=== PATIENT | female | born 1995 | race Caucasian/White ===

== ENCOUNTER → 2019-05-07 09:11 | Outpatient (CLI) | payer MEDICAID, SELFPAY ==
[2019-05-07 08:09] VITALS: BMI 27.1
[2019-05-07 10:03] LABS: Absolute Lymphocyte Count 1.21 X10^3/uL (0.83-4.51); Absolute Neutrophil Count 4.4 X10^3/uL (2.0-7.7); Eosinophil# 0.02 X10^3/uL; Eosinophils% 0.3 % (0-5); Hematocrit 40.1 % (37-47); Hemoglobin 13.7 g/dL (12.0-15.0); Lymphocyte # 1.21 X10^3/ul (4.0); Mean Corp Hgb Conc 34.2 g/dL (32-36); Mean Corpuscular Volume 81.8 fL (81-99); Mean Platelet Vol. 11.6 fl (6.2-12.0); Monocyte# 0.43 X10^3/uL; Monocyte% 7.1 % (0-10); NRBC Flagged by Analyzer 0 % (0-5); Neutrophil # 4.36 X10^3/uL (2.7-7.7); Neutrophil % 72.3 % (47-70); Platelet Count 150 K/mm3 (150-450); RBC Distribution Width CV 13.4 % (11.6-14.6); RBC Distribution Width SD 39.8 fl (35.1-43.9)
[2019-05-07 11:19] LABS: HIV - WCH Non-Reactive (Nonreactive); Rubella IgG 195.3 IU/mL
[2019-05-07 12:22] LABS: Hepatitis B Surface Antigen Non-Reactive (Nonreactive)
[2019-05-07 14:46] LABS: Chlamydia Trachomatis by PCR Negative (Negative); Neisserai gonorrhoeae by PCR Negative (Negative); Probe Check PASS; Sample Adequacy Control PASS; Specimen Processing Control PASS
[2019-05-10 09:27] LABS: HPV Reflexed? NOT INDICATED
[2019-05-11 01:33] LABS: Rapid Plasmin Reagin (RPR) NONREACTIVE (NONREACTIVE)
== END ==
PROVIDERS: Referring Provider Obstetrics & Gynecology; Visit Provider Obstetrics & Gynecology
DX: Z34.90 Encounter for supervision of normal pregnancy, unspecified, unspecified trimester (principal); Z12.4 Encounter for screening for malignant neoplasm of cervix
CPT/HCPCS: 36415; 85025; 86592; 86703; 86762; 86850; 86900; 87077; 87086; 87088; 87186; 87340; 87491; 87591; 87624; 88175; G0145

== ENCOUNTER → 2019-09-11 12:08 | Outpatient (CLI) | payer MEDICAID, SELFPAY ==
[2019-09-10 15:17] VITALS: BMI 27.4
[2019-09-11 13:21] LABS: Absolute Neutrophil Count 6.9 X10^3/uL (2.0-7.7); Basophil# 0.01 X10^3/uL; Basophil% 0.1 % (0-1); Eosinophil# 0.05 X10^3/uL; Eosinophils% 0.6 % (0-5); Hematocrit 36.7 % (37-47); Hemoglobin 12.2 g/dL (12.0-15.0); Lymphocyte % 13.5 % (19-41); Mean Corp Hgb Conc 33.2 g/dL (32-36); Mean Corpuscular Volume 87.2 fL (81-99); Mean Platelet Vol. 10.8 fl (6.2-12.0); Monocyte# 0.64 X10^3/uL; Monocyte% 7.2 % (0-10); NRBC Flagged by Analyzer 0 % (0-5); Neutrophil # 6.93 X10^3/uL (2.7-7.7); Neutrophil % 78.1 % (47-70); Platelet Count 177 K/mm3 (150-450); RBC Distribution Width CV 13.3 % (11.6-14.6); RBC Distribution Width SD 41.7 fl (35.1-43.9); Red Blood Count 4.21 M/mm3 (4.2-5.4); White Blood Count 8.9 K/mm3 (4.4-11.0)
[2019-09-11 13:59] LABS: Glucose Challenge Gest 1H 50g 78 mg/dL (70-140)
== END ==
PROVIDERS: Referring Provider Obstetrics & Gynecology; Visit Provider Obstetrics & Gynecology
DX: O36.0120 Maternal care for anti-D [Rh] antibodies, second trimester, not applicable or unspecified (principal); Z3A.00 Weeks of gestation of pregnancy not specified
CPT/HCPCS: 36415; 82950; 85025; 86850; 86900; 86901

== ENCOUNTER → 2019-11-07 16:55 | Outpatient (CLI) | payer MEDICAID, SELFPAY ==
[2019-11-07 11:32] VITALS: BMI 27.4
== END ==
PROVIDERS: Referring Provider Obstetrics & Gynecology; Visit Provider Obstetrics & Gynecology
DX: O23.41 Unspecified infection of urinary tract in pregnancy, first trimester (principal); Z3A.00 Weeks of gestation of pregnancy not specified
CPT/HCPCS: 87077; 87081; 87186

== ENCOUNTER → 2019-11-08 14:27 | Outpatient (CLI) | payer MEDICAID, SELFPAY ==
[2019-11-07 11:32] VITALS: BMI 27.4
--- NOTE | 2019-11-08 14:28 | US_ITS ---
STUDY: SECOND AND THIRD TRIMESTER OBSTETRICAL ULTRASOUND - LIMITED REASON FOR EXAM: Female, 23 years old GROWTH LMP: 02/24/2019 PRIOR ULTRASOUND: None. TECHNIQUE: Transabdominal TECHNICAL QUALITY: Adequate. FINDINGS: There is a single intrauterine fetus. The fetus is in a cephalic presentation. There is demonstrated cardiac activity with a heart rate of 129 bpm. There is a normal amniotic fluid volume. The largest amniotic fluid pocket measures 5.5 cm. The amniotic fluid index (SCOTT) is 15.6 cm. The placenta is anterior in location and is not low lying. There are Grade 2 placental changes. The cervix measures cm in length. BIOMETRY: BPD: 8.4 cm: 33 weeks, 6 days HC: 31.6 cm: 35 weeks, 4 days AC: 31.9 cm: 35 weeks, 6 days FL: 7.0 cm: 36 weeks, 0 days Age by LMP: 36 weeks, 5 days. KOFI by LMP: 12/01/2019. age by current US: 35 weeks, 3 days. KOFI by current US: 12/10/2019. Estimated weight: 2721 grams, +/- 397 grams, 26 percentile. Gender: US/OB Limited With Biometrics IMPRESSION: Living intrauterine of 35 weeks 3 days as described above. Electronically Signed: Donavan Lisa MD at 9:49 EST Tel , Service support ,
== END ==
PROVIDERS: Referring Provider Obstetrics & Gynecology; Visit Provider Obstetrics & Gynecology
DX: Z34.93 Encounter for supervision of normal pregnancy, unspecified, third trimester (principal); Z3A.36 36 weeks gestation of pregnancy
CPT/HCPCS: 76816

== ENCOUNTER 2019-11-11 02:56 | Outpatient (CLI) | payer MEDICAID, SELFPAY ==
[2019-11-07 11:32] VITALS: BMI 27.4
[2019-11-11 03:50] VITALS: BMI 29.1
--- NOTE | 2019-11-12 20:24 | OB.TRI.PN_ITS ---
Progress Notes Date of Service: 11/11/19 Progress Note: false labor FHT: 150 Moderate variability reactive no decelerations category I tracing [place]: irregular Contractions no cervical change reassuring cat I tracing reactive nst dc home labor precautions Multi Select Codes - Urinary/Genital Urinary/Genital CPT Codes: 72271-18 non-stress test Interp
== END 2019-11-11 06:40 | disposition home or self-care (01) ==
LOC: WPOUT 03:39 → WP 03:40
PROVIDERS: Referring Provider Obstetrics & Gynecology; Visit Provider Obstetrics & Gynecology
DX: O47.9 False labor, unspecified (principal); Z3A.00 Weeks of gestation of pregnancy not specified
CPT/HCPCS: 59025; 99218; G0378

== ENCOUNTER 2019-11-11 19:05 | Outpatient (CLI) | payer MEDICAID, SELFPAY ==
[2019-11-11 03:50] VITALS: BMI 29.1
[2019-11-11 19:49] VITALS: BMI 29.0
[2019-11-11 20:06] LABS: Red Blood Cells-Urine 0 SEEN /hpf (0-5); Squamous Epithelial Cells - UA 0 SEEN /hpf (5-10); White Blood Cells 0 SEEN /hpf (0-5)
[2019-11-11 20:07] LABS: Color, Urine Yellow (Yellow); Glucose, Dipstick Normal (Normal); Ketone-Dipstick 15 mg/dl (Negative); Leukocyte Esterase-Dipstick Negative /ul (Negative); Nitrite-Dipstick Negative (Negative); Occult Blood-Urine Negative /ul (Negative); Protein-Dipstick Negative (Negative); Urine Bilirubin Dipstick Negative (Negative); Urine Clarity Sl. Cloudy (Clear); Urine Urobilinogen Normal (Normal)
[2019-11-11 20:16] LABS: Bacteria RARE /hpf (None Seen); Mucous, Urine RARE /hpf (<or=2+)
--- NOTE | 2019-11-12 20:26 | OB.TRI.PN ---
Progress Notes Date of Service: 11/11/19 Progress Note: patient evaluated again for contractions no ROM fht reactive and reassuring, minimal cervical change, patient monitored and stable discharge to home labor precautions Laboratory Studies: Laboratory Tests 11/11/19 Range/Units 19:30 Urine Color Yellow (Yellow) Urine Clarity Sl. Cloudy (Clear) Urine pH 7.0 (5.0 - 8.0) Ur Specific [place] 1.010 (1.002-1.030) Urine Protein Negative (Negative) mg/dl Urine Glucose (UA) Normal (Normal) mg/dl Urine Ketones 15 H (Negative) mg/dl Urine Occult Blood Negative (Negative) /ul Urine Nitrite Negative (Negative) Urine Bilirubin Negative (Negative) mg/dL Urine Urobilinogen Normal (Normal) mg/dl Ur Leukocyte Esterase Negative (Negative) /ul Urine RBC 0 SEEN (0-5) /hpf Urine WBC 0 SEEN (0-5) /hpf Ur Squamous Epith Cells 0 SEEN (5-10) /hpf Urine Bacteria RARE (None Seen) /hpf Urine Mucus RARE (<or=2+) /hpf
== END 2019-11-11 22:35 | disposition home or self-care (01) ==
LOC: WPOUT 19:46 → WP 19:47
PROVIDERS: Visit Provider Obstetrics & Gynecology
DX: O47.9 False labor, unspecified (principal); Z3A.00 Weeks of gestation of pregnancy not specified
CPT/HCPCS: 59025; 59050; 81001; 99218; G0378

== ENCOUNTER 2019-11-15 10:10 | Inpatient (IN) | payer MEDICAID, SELFPAY ==
[2019-11-15 09:39] VITALS: BMI 29.0
[2019-11-15 10:19] VITALS: BMI 29.0
[2019-11-15] MEDS: Lactated Ringers 1,000 ML 50 ML IV (10:20)
[2019-11-15 10:41] LABS: Absolute Lymphocyte Count 1.16 X10^3/uL (0.83-4.51); Absolute Neutrophil Count 11.1 X10^3/uL (2.0-7.7); Basophil# 0.01 X10^3/uL; Basophil% 0.1 % (0-1); Eosinophil# 0.03 X10^3/uL; Eosinophils% 0.2 % (0-5); Hematocrit 38.2 % (37-47); Hemoglobin 12.8 g/dL (12.0-15.0); Lymphocyte # 1.16 X10^3/ul (4.0); Lymphocyte % 8.8 % (19-41); Mean Corp Hgb Conc 33.5 g/dL (32-36); Mean Corpuscular Hgb 28.6 pg (27.0-32.0); Mean Corpuscular Volume 85.5 fL (81-99); Mean Platelet Vol. 11.5 fl (6.2-12.0); Monocyte# 0.79 X10^3/uL; NRBC Flagged by Analyzer 0 % (0-5); Neutrophil # 11.09 X10^3/uL (2.7-7.7); Neutrophil % 84.4 % (47-70); Platelet Count 182 K/mm3 (150-450); RBC Distribution Width CV 13.3 % (11.6-14.6); RBC Distribution Width SD 41.2 fl (35.1-43.9); Red Blood Count 4.47 M/mm3 (4.2-5.4); White Blood Count 13.2 K/mm3 (4.4-11.0)
--- NOTE | 2019-11-15 12:11 | HP.PCM_ITS ---
- Problem List (1) Active labor at term Status: Acute (2) GBS (group B streptococcus) UTI complicating Status: Acute Qualifiers: Comment: tx with macrobid/ PCN in labor (3) Positive GBS test Status: Acute (4) Status: Acute Qualifiers: Comment: abnormal carrier, genetic-low risk (female), and ntd screening normal anatomy us (5) Rh negative status during Status: Acute Qualifiers: Comment: rhogam at 28 weeks and PRN (6) Screening for genetic disease carrier status Status: Acute Comment: Mother is a carrier of spinal muscular atrophy. FOB negative carrier testing. (7) Supervision of normal Status: Acute Qualifiers: Comment: KOFI 12/01/19 girl Kristy Roman Carnes History and Physical Date of Admission: 11/15/19 Intake Vital Signs 11/15/19 Height 5 ft 7 in 11/15/19 Weight: 186 lb 11/15/19 BMI 29.1 11/15/19 BP 122/90 H Intake Visit Reasons: 37 WK OB Chief Complaint: est ob Gang Hemstitching Machine Operator Required: No Is patient in pain?: No Allergies No Known Allergies Allergy (Verified 11/15/19 09:38) Medications promethazine 12.5 mg tablet 12.5 mg PO Q6H #60 tab 05/02/19 [Rx Confirmed 11/15/19] vitamin#30 30 mg iron-10 mg iron-folic acid 1 mg-omg3 capsule 1 cap PO DAILY cap 05/07/19 [History Confirmed 11/15/19] Last Menstral Period: 02/24/19 Zika: Zika virus screening: Negative : No PFSH PFSH Surgical History Elective (Acute) Social History (Updated 11/15/19 @ 11:15 by Mohini Toribio MD) Smoking Status: Former smoker alcohol intake: never substance use type: does not use caffeine: Yes what type of physical activity do you participate in: walking seatbelt use: always do you feel safe at home: Yes 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 Date Name GA/Weeks Outcome Route Bth Weight Infant Gen Labor Lgth Anesthesia Del Locatn Provider FOB Unknown 2012 Roman 40 live - full term NS VD Male none Lola Garcia Unknown 2013 Rosemay 39 live - full term Female 4 none Lola Garcia Delivery Date: On 05/07/19 @ 08:21 Sarina Roberts Induced Delivery Date: No notes to display HPI 37 WK OB: Details: CARLOS HAAS is a 23 year old who presents IAL 6 cm dilated no vb lof admits good fm, contractions for the last few days but increasing today OB Visit KOFI Calculator Estimated Delivery Date Method Current WG Current Estimate 12/01/19 LMP (Certain) 37w 5d Expected Delivery Route/Plan Labor Preferences- labor support person: [place] pain management options preferred: natural cut cord/dad catch: yes : yes PP control planned: [] discussed possible routes of delivery and associated risks: [] special requests: [] Specific Issue/Plans flu vaccine: declined tdap vaccine: given rhogam: given LARC form signed: yes Problem list reviewed and updated with the most current plan of care details and appropriate orders placed. Relevant counseling for the gestational age provided. Continue routine care and follow up unless otherwise noted in visit notes/problem list details Initial Weight: Not Recorded Date EGA Weight BP Urine Prot Glucose FHR FuHt Pres Dilation Effaced St Visit Note 06/05/19 14w 3d 172 lb 120/70 Negative Negative 150 no vb some cramping. airam will get tested for SMA gene 07/03/19 18w 3d 174 lb 2 oz 122/72 Negative Negative 151 No VB, LOF 09/10/19 28w 2d 179 lb 132/78 150 28 tdap cbc gct when able, t and s no vb lof good fm no reg ctx 10/03/19 31w 4d 179 lb 120/70 Negative Negative 148 31 Had fall earlier today onto left side. No VB, LOF. Good FM. Recent rhogam. 10/19/19 33w 6d 181 lb 8 oz 130/78 Negative Negative 131 33 No LOF. Brown discharge with wiping this am-intercourse last pm. No CTX. Good FM. Reassured 10/31/19 35w 4d 185 lb 124/80 130 34 SM- no vb lof good fm no regular ctx. 11/07/19 36w 4d 183 lb 122/84 Negative Negative 130 36 SM- no vb lof good fm no regular ctx Notes Visit Date: 11/07/19 ??No visit notes to display Visit Date: 10/31/19 ??No visit notes to display Visit Date: 10/19/19 ??No visit notes to display Visit Date: 10/03/19 ??No visit notes to display Visit Date: 09/10/19 ??tdap cbc gct when able, t and s no vb lof good fm no reg ctx ??Mohini Toribio MD on 09/10/19 Visit Date: 07/03/19 ??No VB, LOF ??LIU Lopez on 07/03/19 Visit Date: 06/05/19 ??no vb some cramping. airam will get tested for SMA gene ??Mohini Toribio MD on 06/05/19 ACOG First Trimester First Trimester: Desire for , Alcohol, Tobacco Cessation, Illicit/Recreational Drug/Substance Use, Intimate Partner Violence, Barriers to care, Unstable Housing, Communication Barriers, Environmental/Work Hazards, Anticipated Course of Care, Toxoplasmosis Precations, Use of Any medications, Sexual activity, Exercise, Dental Care, Sauna/Hot tub use, Seat Belt use, Childbirth classes/Hospital facilities, , Travel, Indications for US and Screening for Aneuploidy Second Trimester Second Trimester: Signs and Symptoms of Labor, Selecting a care provider, Reproductive Life Planning, Care Planning, Tobacco Cessation, Depression/Anxiety and Intimate Partner Violence Third Trimester Third Trimester: Pain Management Plans, Labor support person(s), Immediate Larc, Movement Monitoring and Infant Feeding Yes ; discussed Trial of Labor after Counseling or discussed Circumcision preference Diagnostics Diagnostics Diagnostics Blood Type O NEGATIVE 09/11/19 Antibody Screen NEGATIVE 09/11/19 Glucose 1 Hr 50 gm 78 mg/dL (70-140) 09/11/19 Hgb 12.8 g/dL (12.0-15.0) 11/15/19 Hct 38.2 % (37-47) 11/15/19 Details: HIV: Urine Culture: Sequential Screen: NIPT Screen: fht 130 moderate variability reactive no decels cat I tracing toco q 2-3 ROS Const Reports system reviewed and no additional complaints, except as docu Card Reports system reviewed and no additional complaints, except as docu Resp Reports system reviewed and no additional complaints, except as docu GI Reports system reviewed and no additional complaints, except as docu, Reports nausea Reports system reviewed and no additional complaints, except as docu Musc Reports system reviewed and no additional complaints, except as docu Exam Const General: cooperative, healthy appearing, comfortable, anxious HENOR Head: normal to inspection Nose: external nose normal Face and sinus: normal facial exam Neck Neck: normal visual inspection, full ROM, no lymphadenopathy Thyroid: thyroid normal Chest Chest palpation & inspection: normal inspection of the chest Resp Effort & Inspection: normal respiratory effort GI Inspection: normal to inspection Palpation: soft, other (gravid uterus) Other: vertex and appropriate size for gestational age Other: Cervical Exam: Extrem General: pedal edema Assessment & Plan Problems 1. Positive GBS test B95.1 2. Group B Streptococcus urinary tract infection affecting in first trimester O23.41 3. Rh negative status during in second trimester O26.892 4. 37 weeks gestation of Z3A.37 5. Encounter for supervision of other normal in second trimester Z34.82 plan minimal intervention gbs pos- pcn rh negative- rhogam PRN Coding Level of Care Code OB Routine Diagnoses Positive GBS test B95.1 Group B Streptococcus urinary tract infection affecting in first trimester O23.41 ??Trimester: first trimester Rh negative status during in second trimester O26.892 ??Trimester: second trimester 37 weeks gestation of Z3A.37 ??Weeks of gestation: 37 weeks Encounter for supervision of other normal in second trimester Z34.82 ??Normal : other normal ??Trimester: second trimester
[2019-11-15] MEDS: Oxytocin 30 units/NS 500 ml 30 UNITS/500 ML IV.SOLN 334 UNITS IV (12:20)
--- NOTE | 2019-11-15 12:34 | PCM.OPRPT ---
Problem List (1) Active labor at term Status: Acute (2) GBS (group B streptococcus) UTI complicating Status: Acute Qualifiers: Comment: tx with macrobid/ PCN in labor (3) Positive GBS test Status: Acute (4) Status: Acute Qualifiers: Comment: abnormal carrier, genetic-low risk (female), and ntd screening normal anatomy us (5) Rh negative status during Status: Acute Qualifiers: Comment: rhogam at 28 weeks and PRN (6) Screening for genetic disease carrier status Status: Acute Comment: Mother is a carrier of spinal muscular atrophy. FOB negative carrier testing. (7) Supervision of normal Status: Acute Qualifiers: Comment: KOFI 12/01/19 girl Kristy Roman Carnes FOB [place] Vaginal Delivery Maternal Presentation: Active Labor ial Amniotic Membrane Rupture Type: Artificial Amniotic Fluid Description: Clear Date of Procedure: 11/15/19 Pre-Operative Diagnosis: ial Post-Operative Diagnosis: same Surgery/ Procedure Performed: Spontaneous Vaginal Delivery Type of Anesthesia: None Description of Procedure: Patient began pushing and delivered the head in the MAGALI presentation. The head was delivered atraumatically . The anterior and posterior shoulders delivered without complication followed by the rest of the infant and the infant was placed on the maternal abdomen. Delayed cord clamping was employed for approximately 60 seconds. Cord was clamped and cut and gentle traction was applied to the cord and the placenta delivered spontaneously immediately following it was noted to be intact with three-vessel cord. The perineum and vagina were inspected and noted to have no laceration. EBL was 100 cc. Patient and infant tolerated delivery well. Presentation: MAGALI Placental Delivery Description: Spontaneous Placenta Disposition: [facility] Cord Vessel Description: 3 Vessels Cord Entanglement: None Estimated Blood Loss: 100 Infant A gender: Female Episiotomy Description: None Laceration: None Medications given after delivery: IV Pitocin Complications: None Multi Select Codes - Urinary/Genital Urinary/Genital CPT Codes: 54256 Vaginal Delivery [facility]
[2019-11-15] MEDS: Naproxen 250 MG Tablet 500 MG PO ×2 (14:08→22:23)
[2019-11-15 16:24] VITALS: BP 116/63; PULSE 80; RESP 16; TEMP 37
[2019-11-15] MEDS: Acetaminophen 500 MG Tablet 1000 MG PO (18:31)
[2019-11-15 20:04] VITALS: BP 118/70; PULSE 58; RESP 16; TEMP 36.9
[2019-11-16] VITALS: BP 104/50; PULSE 68; RESP 16; TEMP 36.4
[2019-11-16 04:45] VITALS: BP 103/57; PULSE 62; RESP 18; TEMP 37.2
--- NOTE | 2019-11-16 05:18 | PN.OBGYN_ITS ---
Subjective: doing well no complaints pain controlled no CP SOB N V ambulating well tolerating po lochia moderate, going well - Physical Exam Vitals/I&O's: Vital Signs Temp Pulse Resp BP 98.9 F 62 18 103/57 L 11/16/19 04:45 11/16/19 04:45 11/16/19 04:45 11/16/19 04:45 Oxygen Delivery Method Room Air Weight: 185 lb 6.54 oz Body Mass Index (BMI) 29.0 Intake and Output for Last 24 Hours 11/14/19 11/15/19 11/16/19 23:59 23:59 23:59 Intake Total 705 / 705 Output Total 600 / 600 Balance 105 / 105 General: Alert, Oriented x3 Laboratory Results 11/15/19 10:20: WBC 13.2 H, RBC 4.47, Hgb 12.8, Hct 38.2, MCV 85.5, MCH 28.6, MCHC 33.5, RDW Std Deviation 41.2, RDW Coeff of Evangelina 13.3, Plt Count 182, MPV 11.5, Immature Gran % (Auto) 0.500, Neut % (Auto) 84.4 H, Lymph % (Auto) 8.8 L, [place] % (Auto) 6.0, Eos % (Auto) 0.2, Baso % (Auto) 0.1, Absolute Neuts (auto) 11.1 H, Absolute Lymphs (auto) 1.16, Nucleated RBC % 0 11/15/19 10:20: Blood Type O NEGATIVE, Antibody Screen NEGATIVE Current Medications Acetaminophen (Tylenol) 1,000 mg PO Q8H PRN PRN PRN Reason: Pain Score 1-3/10 Last Admin: 11/15/19 18:31 Dose: 1,000 mg Documented by: Bisacodyl (Dulcolax) 10 mg RECTAL UD PRN PRN Reason: If no BM Dibucaine (Dibucaine) 1 applic TOPICAL TID PRN PRN; Protocol PRN Reason: Discomfort Hydrocortisone (Hytone) 1 applic TOPICAL TID PRN PRN; Protocol PRN Reason: Discomfort Methylergonovine Maleate (Methergine) 0.2 mg IM X1 PRN PRN Reason: Excess bleeding/uterine atony Naproxen (Naprosyn) 500 mg PO Q8H PRN PRN PRN Reason: Pain Score 1-3/10 Last Admin: 11/15/19 22:23 Dose: 500 mg Documented by: Ondansetron HCl (Zofran) 4 mg IV Q4H PRN PRN PRN Reason: Nausea Oxycodone HCl (Oxyir) 5 - 10 mg PO Q4H PRN PRN PRN Reason: Pain Score 4-10/10 Senna/Docusate Sodium (Senokot-S, Miriam-Colace) 1 - 2 tablet PO DAILY PRN PRN PRN Reason: Constipation Simethicone (Mylicon) 80 mg PO PCHS PRN PRN Reason: Indigestion/Stomach pain Sodium Chloride () 5 - 15 ml IV UD PRN PRN Reason: SALINE FLUSH Medical Necessity - Tobacco Use Smoking Status: Former smoker Assessment/Plan All Active Problems (Last Reviewed 11/15/19 @ 09:38 by Sarina Roberts) Active labor at term (Acute) Positive GBS test (Acute) Screening for genetic disease carrier status (Acute) GBS (group B streptococcus) UTI complicating (Acute) Rh negative status during (Acute) (Acute) Supervision of normal (Acute) s/p PPD # 1 1. routine post delivery care 2. breast feeding- support given 3. rh neg 4. rubella immune
--- NOTE | 2019-11-16 05:18 | DCINST_ITS ---
Discharge Diet: No Restrictions Discharge Activity: Return to Normal Activity, May not drive while taking narcotic pain medications., May Shower May resume sexual activity in: 4-6 weeks Call your doctor if your incision/area has: Continuous Slow Oozing, Sudden Increased Bleeding, Increased Pain/ Swelling, Increased Redness, Foul Smelling Discharge Additional Instructions: If you experience any of the following, contact your healthcare provider. * Bleeding that soaks a pad every hour for 2 hours * Fever 100.4 or higher * Unrelieved incision or abdominal pain * Swelling, redness, discharge or bleeding from your incision or episiotomy site * Your incision begins to separate * Problems urinating (including inability to urinate or burning while urinating). * Visual changes * Severe headache * Flu-like symptoms * Pain or redness in one of both of your breasts * Pain, warmth, tenderness or swelling in your legs, especially the calf area * Frequent nausea and vomiting * Symptoms of depression or anxiety If you experience any of the following, call 911 or go to the nearest Emergency Room. * Chest pain * Problems breathing * Seizure activity * Partial or complete paralysis of a body part, slurred speech, weakness or drooping of the face, or a sudden inability to walk or hold your balance Allergies/Adverse Reactions: Allergies No Known Allergies Allergy (Verified 11/15/19 09:38) Medications to take at Discharge promethazine 12.5 mg tablet 12.5 mg PO Q6H #60 tab 05/02/19 vitamin#30 30 mg iron-10 mg iron-folic acid 1 mg-omg3 capsule 1 cap PO DAILY cap 05/07/19 Please Follow Up With: Mohini Toribio MD - [phone] When: Call to make an appointment with your doctor in 6 weeks. If you had elevated Blood pressure or 4th degree laceration you will need to be seen in 2 weeks. Primary Care Physician: Care Physician,No Primary [Primary Care Provider] - Test Results: Test results from this visit will be discussed in further detail at your follow- up appointment, if applicable.
--- NOTE | 2019-11-16 05:18 | PCM.DCVAG ---
Discharge Diet: No Restrictions Discharge Activity: Return to Normal Activity, May not drive while taking narcotic pain medications., May Shower May resume sexual activity in: 4-6 weeks Call your doctor if your incision/area has: Continuous Slow Oozing, Sudden Increased Bleeding, Increased Pain/ Swelling, Increased Redness, Foul Smelling Discharge Additional Instructions: If you experience any of the following, contact your healthcare provider. Bleeding that soaks a pad every hour for 2 hours Fever 100.4 or higher Unrelieved incision or abdominal pain Swelling, redness, discharge or bleeding from your incision or episiotomy site Your incision begins to separate Problems urinating (including inability to urinate or burning while urinating). Visual changes Severe headache Flu-like symptoms Pain or redness in one of both of your breasts Pain, warmth, tenderness or swelling in your legs, especially the calf area Frequent nausea and vomiting Symptoms of depression or anxiety If you experience any of the following, call 911 or go to the nearest Emergency Room. Chest pain Problems breathing Seizure activity Partial or complete paralysis of a body part, slurred speech, weakness or drooping of the face, or a sudden inability to walk or hold your balance Allergies/Adverse Reactions: Allergies No Known Allergies Allergy (Verified 11/15/19 09:38) Medications to take at Discharge promethazine 12.5 mg tablet 12.5 mg PO Q6H #60 tab 05/02/19 vitamin#30 30 mg iron-10 mg iron-folic acid 1 mg-omg3 capsule 1 cap PO DAILY cap 05/07/19 Please Follow Up With: Mohini Toribio MD - [phone] When: Call to make an appointment with your doctor in 6 weeks. If you had elevated Blood pressure or 4th degree laceration you will need to be seen in 2 weeks. Primary Care Physician: Care Physician,No Primary [Primary Care Provider] - Test Results: Test results from this visit will be discussed in further detail at your follow-up appointment, if applicable.
[2019-11-16] MEDS: Senna/Docusate Sodium 1 Tablet PO (09:27)
[2019-11-16] MEDS: Naproxen 250 MG Tablet 500 MG PO ×2 (09:27→19:35)
[2019-11-16 09:30] VITALS: BP 119/72; PULSE 83; RESP 16; TEMP 37.2
[2019-11-16 14:15] VITALS: BP 124/74; PULSE 73; TEMP 36.8
[2019-11-16] MEDS: Acetaminophen 500 MG Tablet 1000 MG PO (15:54)
[2019-11-16 19:44] VITALS: BP 104/61; PULSE 56; RESP 16; TEMP 36.7
[2019-11-17] MEDS: Acetaminophen 500 MG Tablet 1000 MG PO (01:36)
[2019-11-17 01:59] VITALS: BP 104/64; PULSE 58; RESP 18; TEMP 36.7
[2019-11-17] MEDS: Naproxen 250 MG Tablet 500 MG PO (06:40)
[2019-11-17 09:09] VITALS: BP 119/77; PULSE 64; RESP 16; TEMP 36.9; O2SAT 97
--- NOTE | 2019-11-17 10:30 | PCM.PN.OB ---
Patient Problems: Active and Suspected Problems (Last Reviewed 11/15/19 @ 09:38 by Sarina Roberts) Active labor at term (Acute) Subjective: doing well no complaints pain controlled no CP SOB N V ambulating well tolerating po lochia moderate, going well - Physical Exam Vitals/I&O's: Vital Signs Temp Pulse Resp BP 98.1 F 58 L 18 104/64 11/17/19 01:59 11/17/19 01:59 11/17/19 01:59 11/17/19 01:59 Oxygen Delivery Method Room Air Weight: 185 lb 6.54 oz Body Mass Index (BMI) 29.0 Intake and Output for Last 24 Hours 11/15/19 11/16/19 11/17/19 23:59 23:59 23:59 Intake Total 705 / 705 Output Total 600 / 600 Balance 105 / 105 General: Alert, Oriented x3 Current Medications Acetaminophen (Tylenol) 1,000 mg PO Q8H PRN PRN PRN Reason: Pain Score 1-3/10 Last Admin: 11/17/19 01:36 Dose: 1,000 mg Documented by: Bisacodyl (Dulcolax) 10 mg RECTAL UD PRN PRN Reason: If no BM Dibucaine (Dibucaine) 1 applic TOPICAL TID PRN PRN; Protocol PRN Reason: Discomfort Hydrocortisone (Hytone) 1 applic TOPICAL TID PRN PRN; Protocol PRN Reason: Discomfort Methylergonovine Maleate (Methergine) 0.2 mg IM X1 PRN PRN Reason: Excess bleeding/uterine atony Naproxen (Naprosyn) 500 mg PO Q8H PRN PRN PRN Reason: Pain Score 1-3/10 Last Admin: 11/17/19 06:40 Dose: 500 mg Documented by: Ondansetron HCl (Zofran) 4 mg IV Q4H PRN PRN PRN Reason: Nausea Oxycodone HCl (Oxyir) 5 - 10 mg PO Q4H PRN PRN PRN Reason: Pain Score 4-10/10 Senna/Docusate Sodium (Senokot-S, Miriam-Colace) 1 - 2 tablet PO DAILY PRN PRN PRN Reason: Constipation Last Admin: 11/16/19 09:27 Dose: 2 tablet Documented by: Simethicone (Mylicon) 80 mg PO PCHS PRN PRN Reason: Indigestion/Stomach pain Last Admin: 11/17/19 06:44 Dose: 80 mg Documented by: Sodium Chloride () 5 - 15 ml IV UD PRN PRN Reason: SALINE FLUSH Medical Necessity - Tobacco Use Smoking Status: Former smoker Assessment/Plan All Active Problems (Last Reviewed 11/15/19 @ 09:38 by Sarina Roberts) Active labor at term (Acute) Positive GBS test (Acute) Screening for genetic disease carrier status (Acute) GBS (group B streptococcus) UTI complicating (Acute) Rh negative status during (Acute) (Acute) Supervision of normal (Acute) s/p PPD # 2 1. routine post delivery care 2. breast feeding- support given 3. rh negative 4. rubella immune
== END 2019-11-17 09:30 | disposition home or self-care (01) | DRG 560 ==
PROVIDERS: Admitting Provider Obstetrics & Gynecology; Referring Provider Obstetrics & Gynecology; Visit Provider Obstetrics & Gynecology
DX: O23.43 Unspecified infection of urinary tract in pregnancy, third trimester (principal); B95.1 Streptococcus, group B, as the cause of diseases classified elsewhere; O99.824 Streptococcus B carrier state complicating childbirth; O36.0130 Maternal care for anti-D [Rh] antibodies, third trimester, not applicable or unspecified; Z3A.37 37 weeks gestation of pregnancy; Z37.0 Single live birth; Z87.891 Personal history of nicotine dependence; Z28.21 Immunization not carried out because of patient refusal
CPT/HCPCS: 59025; 59050; 85025; 86850; 86900; 86901; 99218; J7120; G0378

== ENCOUNTER → 2021-08-14 12:56 | Outpatient (CLI) | payer MEDICAID, SELFPAY ==
--- NOTE | 2021-08-14 12:59 | US_ITS ---
STUDY: ULTRASOUND OF THE FEMALE PELVIS - COMPLETE REASON FOR EXAM: Female, 25 years old. Pelvic pain LMP: 08/11/2021. TECHNIQUE: Transabdominal and Transvaginal TECHNICAL QUALITY: Adequate. COMPARISON: None. FINDINGS: The uterus is anteverted and is in a midline position. The uterus measures 9.4 cm x 4.6 cm x 4.4 cm. There is a Nabothian cyst of the cervix. The endometrium measures 2.6 mm in thickness, and is hyperechoic. There is no demonstrated endometrial mass. There is no demonstrated myometrial mass. I.U.D. - The patient does not have an I.U.D. The right ovary is visualized. The right ovary measures 2 cm x 2.2 cm x 1.3 cm. There is no right ovarian cyst or ovarian mass. There is no visualized right adnexal mass or complex lesion. There is normal arterial and normal venous vascularity. The left ovary is visualized. The left ovary measures 4.5 cm x 3.6 cm x 3 cm. There is a 3.2 cm x 3 cm x 2.6 cm cyst in the left ovary. There is no visualized left adnexal mass or complex lesion. There is normal arterial and normal venous vascularity. There is no fluid in the cul-de-sac. The pre void volume of the bladder was 309 ml. US/Transvaginal Non- IMPRESSION: 3.2 cm x 3 cm x 2.6 m cyst in the left ovary. Electronically Signed: Tree Menjivar MD at 15:29 EDT , Service support ,
--- NOTE | 2021-08-14 12:59 | US_ITS ---
STUDY: ULTRASOUND OF THE FEMALE PELVIS - COMPLETE REASON FOR EXAM: Female, 25 years old. Pelvic pain LMP: 08/11/2021. TECHNIQUE: Transabdominal and Transvaginal TECHNICAL QUALITY: Adequate. COMPARISON: None. FINDINGS: The uterus is anteverted and is in a midline position. The uterus measures 9.4 cm x 4.6 cm x 4.4 cm. There is a Nabothian cyst of the cervix. The endometrium measures 2.6 mm in thickness, and is hyperechoic. There is no demonstrated endometrial mass. There is no demonstrated myometrial mass. I.U.D. - The patient does not have an I.U.D. The right ovary is visualized. The right ovary measures 2 cm x 2.2 cm x 1.3 cm. There is no right ovarian cyst or ovarian mass. There is no visualized right adnexal mass or complex lesion. There is normal arterial and normal venous vascularity. The left ovary is visualized. The left ovary measures 4.5 cm x 3.6 cm x 3 cm. There is a 3.2 cm x 3 cm x 2.6 cm cyst in the left ovary. There is no visualized left adnexal mass or complex lesion. There is normal arterial and normal venous vascularity. There is no fluid in the cul-de-sac. The pre void volume of the bladder was 309 ml. US/Pelvic (Non ) IMPRESSION: 3.2 cm x 3 cm x 2.6 m cyst in the left ovary. Electronically Signed: Tree Menjivar MD at 15:29 EDT , Service support ,
== END ==
PROVIDERS: Referring Provider Nurse Practitioner Women's Health; Visit Provider Nurse Practitioner Women's Health
DX: N83.202 Unspecified ovarian cyst, left side (principal); N88.8 Other specified noninflammatory disorders of cervix uteri
CPT/HCPCS: 76830; 76856

== ENCOUNTER 2022-03-11 10:31 | Emergency (ER) | payer MEDICAID, SELFPAY ==
[2022-03-11 10:31] VITALS: BP 132/84; PULSE 73; RESP 16; TEMP 36.7; O2SAT 99; BMI 27.3
--- NOTE | 2022-03-11 10:58 | CT_ITS ---
STUDY: CT ABDOMEN AND PELVIS WITHOUT CONTRAST REASON FOR EXAM: Female, 26 years old. Pain RADIATION DOSAGE (If Supplied By Facility): CTDIvol = ( 8.45 ) mGy, DLP = ( 452.01 ) mGycm TECHNIQUE: Transaxial images were obtained from the dome of the diaphragm to the symphysis pubis without oral contrast, and without intravenous contrast. Sagittal and coronal images were reconstructed. Individualized dose optimization techniques were used for this CT. COMPARISON: None. FINDINGS: The visualized lung bases are unremarkable. The visualized portions of the heart are within normal limits. Normal liver. Normal gallbladder and extrahepatic biliary system. Normal spleen. Normal pancreas. Normal bilateral adrenal glands. Normal right kidney. Normal left kidney. Normal visualized stomach. Normal small intestine. Normal colon. The appendix is visualized and appears normal. Normal abdominal aorta. Normal inferior vena cava. Normal retroperitoneum. Normal urinary bladder. Normal abdominal wall. Normal osseous structures. CT/Abdomen/Pelvis without Cont IMPRESSION: No hydronephrosis or urinary tract calcifications. Electronically Signed: Justin Alcala MD ([place]) at 11:45 EDT Reading Location ID and State: [facility] / [place] , Service support ,
--- NOTE | 2022-03-11 10:58 | ED.VIS.GI ---
HPI HPI - GI History of Present Illness Chief Complaint: Abd Pain Narrative Narrative: 26-year-old female presenting with right flank and right upper quadrant pain for about 2 weeks. She states that she has pain whether she eats or not. She expresses that she has had nausea but she has not been vomiting. She complains of urinary frequency and dysuria. No diarrhea or constipation. No fever or chills. She does not know if she is . She states there is always a chance. No pelvic pain. No vaginal bleeding. PFSH PFSH Home Medications L norgest/E estradiol-E estrad 0.15 mg-30 mcg (84)/10 mcg(7) tabs,3mos 1 tab PO DAILY #91 tab 11/24/21 [Rx Last Taken Unknown] naproxen 500 mg tablet 500 mg PO BID PRN #30 tab 11/24/21 [Rx Last Taken Unknown] naproxen 500 mg tablet 500 mg PO BID PRN #30 tab 11/24/21 [Rx Last Taken Unknown] ondansetron 4 mg PO Q8H PRN #14 tab 03/11/22 [Rx Last Taken Unknown] sulfamethoxazole-trimethoprim [Bactrim DS] 1 tab PO BID 10 Days #20 tab 03/11/22 [Rx Last Taken Unknown] Allergy/AdvReac Type Severity Reaction Status Date / Time No Known Allergies Allergy Verified 03/11/22 10:33 Surgical History Elective Social History Smoking Status: Current every day smoker tobacco type: e-cigarettes alcohol intake: never substance use type: does not use caffeine: Yes what type of physical activity do you participate in: walking seatbelt use: always do you feel safe at home: Yes 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 ROS ROS ED Constitutional Constitutional ED: Denies chills or fever(s) ENT ENT ED: Denies rhinorrhea or sore throat Cardiovascular Cardiovascular: Denies chest pain or palpitations Respiratory/Chest Respiratory/Chest: Denies cough or dyspnea Gastrointestinal Gastrointestinal: Reports abdominal pain and nausea; Denies constipation or diarrhea Genitourinary Genitourinary ED: Reports dysuria and urinary frequency Musculoskeletal Musculoskeletal: Denies arthralgias, myalgias or neck pain Integumentary Denies abscess or rash Neurologic Neurologic: Denies headache(s) or weakness Psychiatric Psychiatric: Denies anxiety or depression Endocrine Endocrinology: Denies polydipsia or polyuria EXAM Physical Exam Const Vital Signs: 03/11/22 10:31 03/11/22 12:31 Temperature 98.0 F Temperature Source Temporal Pulse Rate 73 75 Respiratory Rate 16 16 Blood Pressure 132/84 H Blood Pressure Mean 100 Pulse Ox 99 Oxygen Delivery Method Room Air Positive well nourished General Appearance ED: NAD; Negative for pallor HEENT Reports moist mucous membranes normocephalic and atraumatic Eyes PERRL and EOMs intact bilaterally General Eye ED: Negative for pale conjunctiva or scleral icterus Neck No no lymphadenopathy and supple Resp normal respiratory effort and clear to auscultation bilaterally Cardio regular rate and regular rhythm GI non-distended Auscultation: normoactive bowel sounds Palpation: soft; Negative for tender, guarding or rigid Back/Spine General Back: CVA tenderness right Neuro Sensorium / Orientation: alert, oriented to person, oriented to place and oriented to time Psych mental status grossly normal Skin General Skin Exam: Negative for jaundice or pallor MDM MDM MDM Narrative Medical decision making narrative: Patient CBC and CMP are unremarkable. Lipase negative. Serum hCG is negative. Patient declined analgesia initially but then was treated with morphine and Zofran with good improvement of her pain and nausea. Urinalysis did show occult blood, 500 leukocyte esterase, 25-50 WBCs with 1+ bacteria. CT of the abdomen pelvis is obtained and shows no acute pathology. Since patient is having flank pain with CVA tenderness I will start her on antibiotics and treat her as pyelonephritis. Patient given nausea medicine for home but declines analgesia. She is discharged home in stable condition. Impression: 1. Hematuria 2. Pyelonephritis Lab Data Attestation: I reviewed the patient's lab results. Labs: Laboratory Results - last 24 hr 03/11/22 03/11/22 03/11/22 10:55 10:55 10:55 WBC 5.5 RBC 4.86 Hgb 13.9 Hct 41.8 MCV 86.0 MCH 28.6 MCHC 33.3 RDW Std Deviation 39.9 RDW Coeff of Evangelina 12.8 Plt Count 154 MPV 11.1 Immature Gran % (Auto) 0.200 Neut % (Auto) 58.9 Lymph % (Auto) 30.9 [place] % (Auto) 8.5 Eos % (Auto) 1.1 Baso % (Auto) 0.4 Absolute Neuts (auto) 3.2 Absolute Lymphs (auto) 1.70 Nucleated RBC % 0 Sodium 141 Potassium 3.8 Chloride 107 Carbon Dioxide 29.0 Anion Gap 5 BUN 20 H Creatinine 0.81 Estim Creat Clear Calc 101.45 Est GFR (MDRD) Af Amer 109 Est GFR (MDRD) Non-Af 90 BUN/Creatinine Ratio 24.7 H Glucose 95 Calcium 9.4 Total Bilirubin 0.60 AST 14 L ALT 19 Alkaline Phosphatase 65 Total Protein 7.3 Albumin 4.0 Globulin 3.3 Albumin/Globulin Ratio 1.2 Lipase 45 L Serum , Qual NEGATIVE Urine Color Urine Clarity Urine pH Ur Specific [place] Urine Protein Urine Glucose (UA) Urine Ketones Urine Occult Blood Urine Nitrite Urine Bilirubin Urine Urobilinogen Ur Leukocyte Esterase Urine RBC Urine WBC Ur Squamous Epith Cells Urine Bacteria Urine Mucus 03/11/22 12:40 WBC RBC Hgb Hct MCV MCH MCHC RDW Std Deviation RDW Coeff of Evangelina Plt Count MPV Immature Gran % (Auto) Neut % (Auto) Lymph % (Auto) [place] % (Auto) Eos % (Auto) Baso % (Auto) Absolute Neuts (auto) Absolute Lymphs (auto) Nucleated RBC % Sodium Potassium Chloride Carbon Dioxide Anion Gap BUN Creatinine Estim Creat Clear Calc Est GFR (MDRD) Af Amer Est GFR (MDRD) Non-Af BUN/Creatinine Ratio Glucose Calcium Total Bilirubin AST ALT Alkaline Phosphatase Total Protein Albumin Globulin Albumin/Globulin Ratio Lipase Serum , Qual Urine Color Yellow Urine Clarity Clear Urine pH 6.5 Ur Specific [place] 1.015 Urine Protein 15 H Urine Glucose (UA) Normal Urine Ketones Negative Urine Occult Blood 50 H Urine Nitrite Negative Urine Bilirubin Negative Urine Urobilinogen Normal Ur Leukocyte Esterase 500 H Urine RBC 5-10 SEEN Urine WBC 25-50 SEEN Ur Squamous Epith Cells 0-5 SEEN Urine Bacteria 1+ Urine Mucus RARE Radiography Diagnostic Testing: Clinical Impression(s) from Imaging Studies Abdomen/Pelvis CT 03/11/22 10:58 IMPRESSION: No hydronephrosis or urinary tract calcifications. Electronically Signed: Justin Alcala MD ([place]) at 11:45 EDT , Discharge Plan Triage Chief Complaint: Abd Pain ED Provider: Hemanth Shankar Dx/Rx/DC Orders Instructions: ED Pyelonephritis, Female (Adult) Prescriptions: New ondansetron 4 mg tablet,disintegrating 4 mg PO Q8H PRN (Reason: nausea and vomiting) Qty: 14 RF: 0 sulfamethoxazole-trimethoprim [Bactrim DS] 800-160 mg tablet 1 tab PO BID 10 Days Qty: 20 RF: 0 No Action naproxen 500 mg tablet 500 mg PO BID PRN (Reason: pain) Qty: 30 RF: 2 naproxen 500 mg tablet 500 mg PO BID PRN (Reason: pain) Qty: 30 RF: 2 L norgest/e.estradiol-e.estrad [Ashlyna] 0.15 mg-30 mcg (84)/10 mcg (7) tablets,dose pack,3 month 1 tab PO DAILY Qty: 91 RF: 4 Primary Care Provider: Care Physician,No Primary Referrals: Trixie Cabrera DO [NON-STAFF] - 3-5 Days Care Physician,No Primary [Primary Care Provider] - Disposition Disposition: Home, Self Care Discharge Date/Time: 03/11/22 13:58
[2022-03-11 11:06] LABS: Absolute Neutrophil Count 3.2 X10^3/uL (2.0-7.7); Basophil# 0.02 X10^3/uL; Basophil% 0.4 % (0-1); Eosinophil# 0.06 X10^3/uL; Eosinophils% 1.1 % (0-5); Hematocrit 41.8 % (37-47); Hemoglobin 13.9 g/dL (12.0-15.0); Lymphocyte % 30.9 % (19-41); Mean Corp Hgb Conc 33.3 g/dL (32-36); Mean Corpuscular Hgb 28.6 pg (27.0-32.0); Mean Platelet Vol. 11.1 fl (6.2-12.0); Monocyte# 0.47 X10^3/uL; Monocyte% 8.5 % (0-10); NRBC Flagged by Analyzer 0 % (0-5); Neutrophil # 3.24 X10^3/uL (2.7-7.7); Neutrophil % 58.9 % (47-70); Platelet Count 154 K/mm3 (150-450); RBC Distribution Width CV 12.8 % (11.6-14.6); RBC Distribution Width SD 39.9 fl (35.1-43.9); Red Blood Count 4.86 M/mm3 (4.2-5.4); White Blood Count 5.5 K/mm3 (4.4-11.0)
[2022-03-11] MEDS: Ondansetron 4 MG/2 ML Vial IV (11:08)
[2022-03-11] MEDS: Morphine 4 MG/ML Syringe IV (11:08)
[2022-03-11] MEDS: 0.9% Normal Saline 1,000 ML 1000 ML IV (11:08)
[2022-03-11 11:16] LABS: Internal QC Validated? YES +Cl - CLEAR BKGD; Pregnancy, Serum, hCG Quali. NEGATIVE Negative
[2022-03-11 11:22] LABS: ALB/GLOB Ratio 1.2 RATIO (0.9-2.4); AST(SGOT) 14 U/L (15-37); Alanine Aminotransfer ALT/SGPT 19 U/L (13-56); Alkaline Phosphatase 65 U/L (45-117); Anion Gap 5 (5-15); BUN 20 mg/dL (7-18); BUN/Creat Ratio 24.7 RATIO (10-20); Calcium,Total 9.4 mg/dL (8.5-10.1); Chloride 107 mmol/L (98-107); Creatinine, Serum 0.81 mg/dL (0.55-1.02); EST Glomerular Filtration Rate 90 mL/min (>60); Est Glom Filt Rate - Afr Amer 109 mL/min (>60); Estimated Creatinine Clearance 101.45 ml/min; Globulin 3.3 g/dL (2.2-4.2); Glucose 95 mg/dL (74-106); Lipase 45 U/L (73-393); Potassium 3.8 mmol/L (3.5-5.1); Protein, Total 7.3 g/dL (6.4-8.2); Sodium Level 141 mmol/L (136-145)
--- NOTE | 2022-03-11 11:47 | CM.ED ---
SW Note Referral Source: Case Find Referral Reason: No Primary Care Physician (PCP) SW reviewed chart and noted that patient has no PCP. SW provided patient with list of [facility] and [facility] Physician List for reference. SW also provided patient with handout ?Where to go When?. No other issues or concerns voiced at this time. SW remains available for any additional needs. Plan: Provided patient with PCP information Irasema CLARKE
[2022-03-11 12:31] VITALS: PULSE 75; RESP 16
[2022-03-11 12:58] LABS: Color, Urine Yellow (Yellow); Glucose, Dipstick Normal (Normal); Ketone-Dipstick Negative (Negative); Leukocyte Esterase-Dipstick 500 /ul (Negative); Nitrite-Dipstick Negative (Negative); Occult Blood-Urine 50 /ul (Negative); Protein-Dipstick 15 mg/dl (Negative); Specific Gravity, Urine 1.015 (1.002-1.030); Urine Bilirubin Dipstick Negative (Negative); Urine Clarity Clear (Clear); Urine Urobilinogen Normal (Normal); Urine pH 6.5 (5.0 - 8.0)
[2022-03-11 13:13] LABS: White Blood Cells 25-50 SEEN /hpf (0-5)
[2022-03-11 13:14] LABS: Bacteria 1+ /hpf (None Seen); Mucous, Urine RARE /hpf (<or=2+); Red Blood Cells-Urine 5-10 SEEN /hpf (0-5); Squamous Epithelial Cells - UA 0-5 SEEN /hpf (5-10)
[2022-03-11] MEDS: Smz/Tmp Ds Tablet 1 TABLET PO (13:53)
== END 2022-03-11 13:58 | disposition home or self-care (01) ==
PROVIDERS: Emergency Provider Student in an Organized Health Care Education/Training Program; Visit Provider Student in an Organized Health Care Education/Training Program
DX: N12 Tubulo-interstitial nephritis, not specified as acute or chronic (principal); F17.290 Nicotine dependence, other tobacco product, uncomplicated
CPT/HCPCS: 74176; 80053; 81001; 83690; 84703; 85025; 87077; 87086; 87088; 87186; 96361; 96374; 96375; 99283; J7030; J2405